=== PATIENT | female | born 1935 | race Caucasian/White ===

== ENCOUNTER 2017-02-03 08:41 | Inpatient (IN) | payer MEDICARE, OTHER ==
--- NOTE | 2017-02-03 07:00 | HP ---
HISTORY OF PRESENT ILLNESS: This is an 81-year-old female with acid reflux and also atypi jayesh chest pain recently. The patient has known to have coronary artery disease. She has seen a car diologist recently. Venetian Blind Machine Operator told her that the pain is noncardiac in origin and advised to see a business analysis consultant. The patient comes in for EGD because of the atypical chest pain and also hist ory of chronic acid reflux. At times, she also has painful swallowing. The pain is over the retros ternal area. There is no history of odynophagia. ALLERGIES: METRONIDAZOLE. PAST MEDICAL HISTORY: 1. Gout. 2. Chronic anxiety. 3. Hypertension. 4. Hypothyroidism. 5. Diabetes mellitus. 6. Coronary artery disease. PHYSICAL EXAMINATION: VITAL SIGNS: Pulse is 70, blood pressure 130/70. HEENT: Conjunctivae clear. CARDIOVASCULAR: First and second heart sounds normal. LUNGS: Clear to auscultation. ABDOMEN: Soft to palpate. Abdomen is nontender. There is no organomegaly or masses. Bowel sounds are normal. ADMITTING DIAGNOSIS: An 81-year-old female with painful swallowing, atypical chest pain, and chronic acid reflux. PLAN: Esophagogastroduodenoscopy.
--- OUTSIDE RECORDS SUMMARY | 2017-02-03 08:59 | XMS | Clinical Summary ---
:1935 Author Organization [facility] Address [address] [place] [address] Phone Care Team Providers Name Role Phone Lenard Patel Primary Care Provider tel Allergies Active Allergy Reactions Severity Noted Date Comments Metronidazole 01/22/2017 Current Medications Prescription Sig. Disp. Refills Start Date End Date Status metoprolol succinate XL Take 50 mg by mouth Active (TOPROL-XL) 50 mg 24 hr daily. tablet irbesartan (AVAPRO) 150 Take 150 mg by Active MG tablet mouth daily. metFORMIN (GLUCOPHAGE) Take 500 mg by Active 500 mg tablet mouth 2 (two) times a day with meals. isosorbide mononitrate Take 30 mg by mouth Active (IMDUR) 30 MG 24 hr daily. tablet ALPRAZolam (XANAX) 0.25 Take 0.25 mg by Active MG tablet mouth nightly as needed for anxiety. methocarbamol (ROBAXIN) Take 750 mg by Active 750 MG tablet mouth as needed for muscle spasms. traMADol (ULTRAM) 50 mg Take 50 mg by mouth Active tablet every 6 (six) hours as needed for moderate pain. rosuvastatin (CRESTOR) 20 Take 20 mg by mouth Active MG tablet daily. mirtazapine (REMERON) 15 Take 15 mg by mouth Active MG tablet nightly. aspirin (ECOTRIN) 81 MG Take 81 mg by mouth Active enteric coated tablet daily. allopurinol (ZYLOPRIM) Take 100 mg by Active 100 MG tablet mouth daily. levothyroxine (SYNTHROID, Take 100 mcg by Active LEVOXYL) 100 mcg tablet mouth daily. Active Problems Problem Noted Date Mixed hyperlipidemia 01/22/2017 Venous insufficiency 01/22/2017 Non-rheumatic mitral regurgitation 01/22/2017 Essential hypertension 01/22/2017 Coronary artery disease involving rosebud coronary artery of rosebud heart 01/22 without angina pectoris Encounters Date Type Specialty Care Team Description 01/22/2017 Office Visit Cardiology Matt Lozada Mixed hyperlipidemia ( Primary Lavelle MORA MD Dx);Essential hypertension;Coronary artery disease involving rosebud coronary artery of rosebud heart without angina pectoris;Non-rheumatic mitral regurgitation;Venous insufficiency;Urinary tract infection with hematuria, site unspecified from Last 3 Months Family History Medical History Relation Name Comments No Known Problems Father No Known Problems Mother Relation Name Status Comments Father Mother Social History Tobacco Use Types Packs/Day Years Used Date Former Smoker Tobacco Cessation:Counseling Given: Yes Alcohol Use Drinks/Week oz/Week Comments No Sex Assigned at Date Recorded Not on file Last Filed Vital Signs Vital Sign Reading Time Taken Blood Pressure 172/78 01/22/2017 8:53 AM CDT Pulse 61 01/22/2017 8:53 AM CDT Temperature - - Respiratory Rate 18 01/22/2017 8:53 AM CDT Oxygen Saturation 97% 01/22/2017 8:53 AM CDT Inhaled Oxygen Concentration - - Weight 79.8 kg (176 lb) 01/22/2017 8:53 AM CDT Height 162.6 cm (5' 4") 01/22/2017 8:53 AM CDT Body Mass Index 30.21 01/22/2017 8:53 AM CDT Plan of Treatment Date Type Specialty Care Team Description 07/23/2017 Office Visit Cardiology Matt Lozada III, MD [address] [address] [phone] Health Maintenance Due Date Last Done Comments ZOSTER VACCINE 1994 PNEUMOCOCCAL POLYSACCHARIDE VACCINE AGE 65 AND OVER 1999 PNEUMOCOCCAL-13 1999 INFLUENZA VACCINE 12/23/2016 Results ECG 12 lead (01/22/2017 7:00 AM) Component Value Ref Range Ventricular rate 71 Atrial rate 71 TX interval 176 QRSD interval 84 QT interval 416 QTC interval 452 P axis 1 49 QRS axis 1 44 T wave axis 89 EKG impression Normal sinus rhythm-Normal ECG-No previous ECGs available- Specimen Performing Laboratory [facility] [address] [address] [place] [address] from Last 3 Months Insurance Payer Benefit Plan / Group Subscriber ID Type Phone Address MEDICARE MEDICARE PART A AND B [id number] Medicare [place], [place] [facility] MED SUPPLEMENT [id number] Commercial [phone] # [id number] [place] [address]
[2017-02-03] MEDS ORDERED: Lidocaine 1% PF 5 ML VIAL ONE (09:28)
[2017-02-03 10:03] LABS: Hematocrit 30.7 % (36.0-47.0); Mean Platelet Volume 12.4 fL (7.4-10.4); Red Blood Cell (RBC) Count 3.39 mill/uL (4.20-5.40); White Blood Cell (WBC) Count 10.4 thou/uL (4.8-10.8)
--- NOTE | 2017-02-03 10:05 | RAD ---
TWO VIEWS CHEST: History: Pre-operative exam. Comparison: None. FINDINGS: There is atherosclerosis of the aorta. Normal cardiac silhouette. The pulmonary vessels and hilum ar e normal. Costophrenic angles are clear. No masses or consolidations. No pneumothorax. Sternotomy ch anges are noted. IMPRESSION: 1. No acute cardiopulmonary process. 2. Atherosclerosis of the aorta. POS: [facility]
[2017-02-03 10:42] LABS: Band 3 % (5-11); Bite Cells SLIGHT = 2-5 cells (100X) (0-1/hpf); Metamyelocyte 3 % (0-0); Myelocyte 4 % (0-0); Neutrophil 3 % (42-75); Nucleated RBC 1 % (0); Polychromasia SLIGHT = 2-3 cells (100X) (0-2/hpf); Reactive Lymphocytes 2 % (0-10); Schistocytes SLIGHT = 2-5 cells (100X) (0-1/hpf); Tear Drops SLIGHT = 2-5 cells (100X) (0-1/hpf)
--- NOTE | 2017-02-03 12:14 | OP ---
DATE OF PROCEDURE: 02/03/2017 SURGEON: Mando Mccann M.D. OPERATIVE PROCEDURE: Esophagogastroduodenoscopy. PREOPERATIVE DIAGNOSIS: This is an 81-year-old female with atypical chest pain, painful swallowing and dyspepsia. The patient has seen a executive director contract shop recently. The executive director contract shop told her that her symptoms are not from the heart. She was advised to have an endoscopy done because of the symptoms. POSTOPERATIVE DIAGNOSES: 1. Normal esophageal mucosa. 2. Gastritis and erosions. 3. Normal duodenum. No biopsies taken as her platelet count was reported 36, 000 this morning. PROCEDURE IN DETAIL: The patient was placed on her left lateral position and was given sedation by Anesthesia Department. A Pentax video gastroscope under direct vision was passed down the oropharynx, past the GE junction, into the stomach. The vocal cords appeared healthy. The esophageal mucosa appeared normal. There is no intrinsic lesions in the esophagus seen to explain the patient's symptoms. The GE junction, no pathology seen. Retroflexion failed to show any lesions in the fundus or cardia. The gastric body and antrum showed multiple punctate erythematous spots indicative of gastritis. The duodenal bulb and descending duodenum, no pathology seen. No biopsies were obtained from the stomach because of thrombocytopenia. DISCHARGE PLANNING: This is an 81-year-old female who came in for EGD because of chronic dyspepsia, atypical chest pain and painful swallowing. The EGD showed gastritis. The patient's CBC shows marked abnormalities including cytopenia, microcytosis nuclear RB system. I did speak with the pathologist, and he felt that the patient would have a very myeloproliferative disorder or leukemia. Flow cytometry has been ordered. The patient's oncologist is in [place]. I will ask the patient to go and see her oncologist as soon as possible. [facility]
[2017-02-03] MEDS ORDERED: HYDROcodone/Acetaminophen 5/325 mg Tablet PO PRN (15:06)
[2017-02-03] MEDS ORDERED: Ondansetron HCl/PF 4 MG/2 ML Vial IVP PRN (15:06)
[2017-02-03] MEDS ORDERED: Acetaminophen 325 MG TAB PO PRN (15:06)
[2017-02-03] MEDS ORDERED: Milk Of Magnesia 30 ML UDCUP PO PRN (15:06)
[2017-02-03] MEDS ORDERED: Zolpidem Tartrate 5 MG TAB PO PRN (15:06)
[2017-02-03] MEDS ORDERED: Insulin Regular 300 UNITS/3 ML VIAL SC PRN (15:11)
[2017-02-03] MEDS ORDERED: Dextrose 50% Abboject 50 ML SYRINGE SLOW IVP PRN (15:11)
[2017-02-03] MEDS ORDERED: Dextrose 5% in Water 1,000 ML IV PRN (15:11)
[2017-02-03 15:53] LABS: Prothrombin Time 17.2 SEC (12.0-14.7)
[2017-02-03 19:43] VITALS: BMI 30.3
--- NOTE | 2017-02-03 20:37 | HP ---
ADMITTING PHYSICIAN: Dr. Wilian Pastor. REFERRING PHYSICIAN: Dr. Mccann. CHIEF COMPLAINT: Atypical chest pain, dyspepsia and pancytopenia. HISTORY OF PRESENT ILLNESS: This is a pleasant 81-year-old female with history of gastroesophageal reflux disease and atypical chest pain. She has also experienced weight loss of 13 pounds over the last month with dyspepsia. She underwent an esophagogastroduodenoscopy with Dr. Mccann. The pat ient was noted to have a CBC that showed neutropenia as well as thrombocytopenia. The esophagogastr oduodenoscopy was non-eventful and did not exhibit a cough for the patient's pancytopenia. She was thus referred for further hematological workup. REVIEW OF SYSTEMS: The following complete review of systems was negative, unless otherwise mentione d in the HPI or below: Constitutional: Weight loss or gain, sense of well-being, ability to conduct usual activities, exer cise tolerance. Skin/Breast: Rash, itching, changes in hair growth or loss, nail changes, breast lumps, tenderness, swelling, nipple discharge. Eyes: Vision, double vision, tearing, blind spots, pain. ENT/Mouth: Headaches (location, time of onset, duration, precipitating factors), vertigo, lighthead edness, injury. Vision, double vision, tearing, blind spots, pain, nose bleeding, colds, obstruction , discharge, dental difficulties, gingival bleeding, dentures, neck stiffness, pain, tenderness, mas ses in thyroid or other areas. Cardiovascular: Precordial pain, substernal distress, palpitations, syncope, dyspnea on exertion, o rthopnea, nocturnal paroxysmal dyspnea, edema, cyanosis, hypertension, heart murmurs, varicosities, phlebitis, claudication. Respiratory: Pain, shortness of breath, wheezing, stridor, cough, hemoptysis, fever or night sweats . Gastrointestinal: Poor appetite, dysphagia, indigestion, abdominal pain, heartburn, eructation, vahe sea, vomiting, hematemesis, jaundice, constipation, or diarrhea, abnormal stools (teodoro-colored, raymond y, bloody, greasy, foul smelling), flatulence, hemorrhoids, recent changes in bowel habits. Genitourinary: Urgency, frequency, dysuria, nocturia, hematuria, polyuria, oliguria, unusual (or ch holden in) color of urine, stones, hesitancy, change in size of stream, dribbling, acute retention or incontinence, libido, potency. Musculoskeletal: Pain, swelling, redness or heat of muscles or joints, limitation, of motion, muscu lar weakness, atrophy, cramps. Neurologic/Psychiatric: Convulsions, paralyses, tremor, incoordination, paresthesias, difficulties with memory of speech, sensory or motor disturbances, or muscular coordination (ataxia, tremor), emo tional problems, anxiety, depression, previous psychiatric care, unusual perceptions, hallucinations . Allergy/Immunologic: Skin rash, anemia, bleeding tendency, polydipsia, polyuria, intolerance to hea t or cold. PAST MEDICAL HISTORY: Significant for gout, anxiety, hypertension, hypothyroidism, diabetes type 2, coronary artery disease, colon cancer as well as breast cancer. PAST SURGICAL HISTORY: Significant for coronary artery bypass graft x3, hemicolectomy and lumpectom y. FAMILY HISTORY: Noncontributory to this case. SOCIAL HISTORY: Nonsmoker and nondrinker. Lives with family. . HOME MEDICATIONS: Include allopurinol 100 mg q. day, Neurontin 100 mg b.i.d., isosorbide mononitrat e 30 mg q. day, levothyroxine 75 mcg q. day, metformin 500 mg b.i.d., metoprolol 50 mg b.i.d., Michie on 15 mg p.o. at bedtime, irbesartan 150 mg at bedtime, Robaxin 750 mg at bedtime, Crestor 10 mg q.p .m. and Ultram 50 mg twice a day. ALLERGIES: The patient is known to be allergic to METRONIDAZOLE. PHYSICAL EXAMINATION: VITAL SIGNS: Blood pressure in the clinic 130/70 with a pulse of 70. GENERAL: The patient is in no acute distress. HEENT: Head is normocephalic and atraumatic. CARDIAC: Regular rate and rhythm with a 2/6 systolic ejection murmur. LUNGS: Clear to auscultation. ABDOMEN: Soft and nontender. Positive bowel sounds throughout. EXTREMITIES: No clubbing, cyanosis or edema. NEUROLOGIC: No focal deficits. Full range of motion in all extremities. LABORATORY DATA AND IMAGES: The patient noted to have a platelet count of 36,000, a white blood kennedy l count of 10,000 with neutrophils of 3%. Further labs and images are pending at this time. ASSESSMENT AND PLAN: 1. Pancytopenia. 2. Unexplained weight loss. 3. Hypertension. 4. Diabetes type 2. PLAN: The patient will be admitted to inpatient Oncology. Hematology/Oncology has been consulted, a bone marrow biopsy is planned. A flow cytometry is pending at this time. We will continue the maria m cuevas's home medications except for aspirin in preparation for bone marrow biopsy. Further workup a nd measures will be taken based upon the results that are pending.
[2017-02-03] MEDS ORDERED: Aspirin 81 mg Enteric Coated Tablet PO SCH (21:00)
[2017-02-03] MEDS: Mirtazapine 15 MG TAB PO SCH (21:15)
[2017-02-03] MEDS: Famotidine 20 MG TAB PO SCH (21:15)
[2017-02-03] MEDS: ALPRAZolam 0.25 MG TAB PO SCH (21:15)
[2017-02-03] MEDS: traMADol HCl 50 MG TAB PO SCH (21:16)
[2017-02-03] MEDS: Gabapentin 100 MG CAP PO SCH (21:17)
[2017-02-03] MEDS: Methocarbamol 500 MG TAB PO SCH (21:18)
[2017-02-04] MEDS ORDERED: Levothyroxine Sodium 75 MCG TAB PO SCH (06:00)
[2017-02-04 06:48] LABS: Anion Gap 14 mmol/L (10-20); BUN (Urea Nitrogen) 12 mg/dL (9.8-20.1); Calc. Creatinine Clearance 43 mL/min (70-130); Calcium 8.3 mg/dL (7.8-10.44); Carbon Dioxide 21 mmol/L (23-31); Chloride 107 mmol/L (98-107); Estimated GFR-MDRD 40
[2017-02-04 07:07] LABS: Red Blood Cell (RBC) Count 2.98 mill/uL (4.20-5.40)
[2017-02-04] MEDS ORDERED: Allopurinol 100 MG TAB PO SCH (09:00)
[2017-02-04 09:11] LABS: Myelocyte 2 % (0-0); Neutrophil 2 % (42-75); Nucleated RBC 5 % (0); Polychromasia SLIGHT = 2-3 cells (100X) (0-2/hpf); Schistocytes SLIGHT = 2-5 cells (100X) (0-1/hpf)
[2017-02-04] MEDS ORDERED: Lorazepam 2 MG/ML VIAL SLOW IVP PRN (09:25)
--- NOTE | 2017-02-04 09:39 | PDOC.PN ---
- Subjective Encounter Start Date: 02/04/17 Encounter Start Time: 07:30 Subjective: no new complaints - Objective MAR Reviewed: Yes Vital Signs & Weight: Vital Signs (12 hours) Temp Pulse Resp BP Pulse Ox 02/04/17 03:35 99.7 F H 83 16 146/66 H 98 02/03/17 23:44 99.0 F 84 16 136/60 95 Weight Weight 176 lb 9.444 oz I&O: 02/03/17 02/04/17 02/05/17 06:59 06:59 06:59 Intake Total 480 Balance 480 Result Diagrams: 02/04/17 06:24 02/04/17 06:24 Additional Labs: Accuchecks 02/04/17 02/03/17 02/03/17 05:29 19:39 16:50 POC Glucose 104 125 H 103 Radiology Reviewed by me: Yes Phys Exam - Physical Examination Constitutional: NAD HEENT: PERRLA, moist MMs, sclera anicteric Neck: supple, full ROM Respiratory: no rhonchi, clear to auscultation bilateral Cardiovascular: RRR Gastrointestinal: soft, non-tender Musculoskeletal: no edema, pulses present Neurological: non-focal, moves all 4 limbs Psychiatric: normal affect, A&O x 3 Skin: no rash Dx/Plan (1) Pancytopenia Code(s): D61.818 - OTHER PANCYTOPENIA Status: Acute (2) DM2 (diabetes mellitus, type 2) Status: Acute (3) HTN (hypertension) Code(s): I10 - ESSENTIAL (PRIMARY) HYPERTENSION Status: Acute (4) Debilitated patient Code(s): R53.81 - OTHER MALAISE Status: Acute (5) Breast CA Status: Acute (6) Hypothyroid Code(s): E03.9 - HYPOTHYROIDISM, UNSPECIFIED Status: Acute (7) DJD (degenerative joint disease) Code(s): M19.90 - UNSPECIFIED OSTEOARTHRITIS, UNSPECIFIED SITE Status: Acute - Plan cont current plan of care, plan discussed w/ family BMB today, reccs per HEMATOLOGY pending results * .
[2017-02-04] MEDS ORDERED: Midazolam HCl 2 mg/2 ml Vial ONE (10:31)
[2017-02-04] MEDS ORDERED: Fentanyl 100 MCG/2 ML VIAL ONE (10:31)
[2017-02-04 11:11] VITALS: TEMP 98.5
--- NOTE | 2017-02-04 12:55 | CT ---
CT GUIDED BONE MARROW BIOPSY: Clinical history: Neutropenia. PROCEDURE: Informed consent was obtained. Patient was escorted to the procedural suite and placed in the prone position. The patient's left iliac bone was localized posteriorly. The left gluteal soft tissues wer e prepped and draped in sterile standard fashion. Topical anesthesia was achieved as well as anesthe alexandria of the deep soft tissues overlying the iliac bone with buffered 1% Lidocaine. Small skin incisio n was made through which Trocar from a standard bone biopsy kit was advanced to the leading edge of the cortex, with appropriate placement confirmed. The Trocar was then advanced through the cortex in to the intermedullary cavity. After appropriate positioning was confirmed, Trocar was removed. Core biopsy as well as two separate bone marrow aspirates were performed and provided to the hematology t echnician. Specimen was deemed adequate for preparation/interpretation. All devices were removed fro m the patient. Hemostatis was achieved. No procedural complications were present. Patient tolerated the procedure well. IMPRESSION: Technically success CT guided bone marrow biopsy, with site of biopsy at the posterior aspect of the left ilium. Pathology results are pending. POS: [facility]
[2017-02-04] MEDS: Gabapentin 100 MG CAP PO SCH ×2 (14:25→20:50)
[2017-02-04] MEDS: traMADol HCl 50 MG TAB PO SCH ×2 (14:25→20:39)
--- NOTE | 2017-02-04 16:40 | CON ---
DATE OF CONSULTATION: 02/03/2017 REASON FOR CONSULTATION: Cytopenias. HISTORY OF PRESENT ILLNESS: Ms. Spencer is an 81-year-old female, who recently had atypical chest pa in. She saw her metal fabricating supervisor in the [place], [place], who recommended a GI workup. She then saw Dr Kathryn Gonzalez, who performed an EGD earlier today with no abnormal findings. A routine CBC was done, which showed a platelet count of 36,000, hemoglobin of 9.9, her white count was 10.4; however, she had only 3% neutrophils, 44% lymphocytes, and 22% monocytes. There appeared to be blast-like cells. The flow cytometry was sent and she was admitted for further evaluation. The patient has a histor y of breast cancer. She took tamoxifen for 5 years, stopped approximately 5 years ago. Her oncolog ist is in [place] as well. She has had no issues until about the last week and a half when sh shantal has had intermittent fevers, just generalized weakness. Patient had prior history of anemia and h as taken iron pills in the past, but none within the last year or so. She denies any chest pain or shortness of breath. No abdominal discomfort, diarrhea or constipation. Denies any blood in her ur ine. No new rash. PAST MEDICAL HISTORY: 1. Breast cancer, status post lumpectomy and radiation. 2. Hypertension. 3. Hypothyroid. 4. Diabetes type 2. 5. Coronary artery disease. 6. Gout. 7. Colon cancer over 30 years ago, treated with hemicolectomy. PAST SURGICAL HISTORY: 1. Lumpectomy. 2. Coronary artery bypass grafting. 3. Hemicolectomy. ALLERGIES: METRONIDAZOLE. HOME MEDICATIONS: 1. Alprazolam 0.25 mg daily. 2. Allopurinol 100 mg daily. 3. Aspirin 81 mg daily. 4. Gabapentin 100 mg b.i.d. 5. Irbesartan 150 mg daily. 6. Imdur 30 mg daily. 7. Synthroid 75 mcg daily. 8. Methocarbamol 750 mg daily. 9. Toprol-XL 50 mg b.i.d. 10. Mirtazapine 15 mg daily. 11. Crestor 10 mg daily. 12. Glucophage 500 mg b.i.d. 13. Ultram p.r.n. FAMILY HISTORY: No history of blood cancer. SOCIAL HISTORY: , has 2 daughters, who are present at bedside. No alcohol, tobacco or illic it drug use. REVIEW OF SYSTEMS: Twelve point review of systems is negative except for noted in HPI. PHYSICAL EXAMINATION: VITAL SIGNS: Temperature was 99.1, pulse is 89, respiratory rate is 16, BP is 128/66. She is 95% o n room air. GENERAL: Well-developed, well-nourished female, in no acute distress. HEENT: Normocephalic, atraumatic. Pupils equal and reactive to light. NECK: Supple without JVD or masses. CARDIOVASCULAR: Regular rate and rhythm. LUNGS: Clear to auscultation. ABDOMEN: Soft, nontender. Bowel sounds are positive. EXTREMITIES: No clubbing, cyanosis or edema. SKIN: No rash. HEMATOLOGIC: No petechia or purpura. NEUROLOGIC: Nonfocal. PSYCHIATRIC: The patient is alert and oriented and answers questions appropriately. PERTINENT LABORATORY AND X-RAYS: Current WBCs are 10.4, hemoglobin 9.9, hematocrit 30.7, platelet c ount 36,000. She has got 3% neutrophils, 44%, lymphocytes, 22% monocytes, 3% metamyelocytes, 4% mye locytes and 19% blast-like cells. IMPRESSION: 1. Abnormal CBC with anemia, thrombocytopenia, neutropenia and possible blast-like cells. 2. Intermittent fevers. DISCUSSION: The patient has had a flow cytometry, was sent and is pending. The patient needs a bon e marrow biopsy for definitive diagnosis. We will plan that for tomorrow. Hold her aspirin this ev ening. Possible diagnosis was discussed with the family and patient. All questions were answered. Thank you for the consult. We will follow her hospital course closely.
[2017-02-04 19:28] VITALS: BP 125/58
--- NOTE | 2017-02-04 20:03 | PDOC.EVN ---
Event Note - Event Note Event Note: Pt accepted by MD Banegas. Chart reviewed, discussed with Dr Fuentes and with Mlaissa Richardson. They are in agreement pt should be transferred. paperwork signed. Dr. fuentes will discharge patient.
[2017-02-04] MEDS: Mirtazapine 15 MG TAB PO SCH (20:40)
[2017-02-04] MEDS: Famotidine 20 MG TAB PO SCH (20:41)
[2017-02-04] MEDS: ALPRAZolam 0.25 MG TAB PO SCH (20:41)
[2017-02-04] MEDS: Methocarbamol 500 MG TAB PO SCH (20:42)
--- NOTE | 2017-02-05 14:28 | DIS ---
DATE OF ADMISSION: 02/03/2017 DATE OF DISCHARGE: 02/04/2017 CHIEF COMPLAINT: Weakness and fatigue. PRIMARY DISCHARGE DIAGNOSIS: Acute myelogenous leukemia. HOSPITAL COURSE: The patient is a pleasant 81-year-old, who presented with complaints of weakness a nd fatigue. The patient has a history of breast and colon cancer. Flow cytometry and bone marrow b iopsy were ordered. The patient had a CBC that exhibited thrombocytopenia and anemia. Bone marrow biopsy results were consistent with an acute myelogenous process. The Hematology Department initiat ed her transfer to [facility] for further treatment, and the patient was accepted and transferred w ith no untoward events. DISCHARGE DISPOSITION: To inpatient facility, [facility] in [place]. DISCHARGE MEDICATIONS: Please see medication rec list. DISCHARGE ACTIVITY: As tolerated. DISCHARGE DIET: Heart healthy. PHYSICAL EXAMINATION: HEAD: Normocephalic, atraumatic. EYES: PERRL. Extraocular muscles intact. CHEST: Clear to auscultation. HEART: Regular rate and rhythm. ABDOMEN: Nontender, nondistended. EXTREMITIES: No clubbing, cyanosis or edema. DISCHARGE FOLLOWUP: The patient will be admitted to [facility] for further evaluation and treatmen t of possible malignancy.
== END 2017-02-04 21:29 | disposition short-term general hospital (02) | DRG 841 ==
LOC: SDC 08:41 → ONC 12:05 → OBSVTOIN 15:06
PROVIDERS: ADMIT Internal Medicine Addiction Medicine; ATTEND Internal Medicine Addiction Medicine
PROC: 0DJ08ZZ Inspection of Upper Intestinal Tract, Via Natural or Artificial Opening Endoscopic (ICD-10-PCS; principal; 2017-02-03)
PROC: 07DR3ZX Extraction of Iliac Bone Marrow, Percutaneous Approach, Diagnostic (ICD-10-PCS; 2017-02-04)
DX: C92.Z0 Other myeloid leukemia not having achieved remission (principal); D61.818 Other pancytopenia; E11.9 Type 2 diabetes mellitus without complications; R13.10 Dysphagia, unspecified; I10 Essential (primary) hypertension; D75.9 Disease of blood and blood-forming organs, unspecified; R50.9 Fever, unspecified; E03.9 Hypothyroidism, unspecified; Z95.1 Presence of aortocoronary bypass graft; I25.10 Atherosclerotic heart disease of native coronary artery without angina pectoris; K52.9 Noninfective gastroenteritis and colitis, unspecified; M19.90 Unspecified osteoarthritis, unspecified site; R63.4 Abnormal weight loss; Z68.30 Body mass index [BMI] 30.0-30.9, adult; Z85.3 Personal history of malignant neoplasm of breast; Z85.038 Personal history of other malignant neoplasm of large intestine; Z88.1 Allergy status to other antibiotic agents; Z90.49 Acquired absence of other specified parts of digestive tract; Z79.82 Long term (current) use of aspirin
CPT/HCPCS: 20225; 36415; 36416; 71020; 77002; 80048; 85025; 85097; 85610; 87040; 88184; 88237; 88264; 88280; 88305; 88311; 88313; 88341; 88342; J2001; J2060; J2250; J3010